=== PATIENT | female | born 1970 | race Caucasian/White ===

== ENCOUNTER 2017-01-03 13:49 | Emergency (ER) | payer MEDICAID ==
[~2017-01-03] VITALS: Ht 170.2 cm; Wt 59.5 kg
[~2017-01-03 13:49] MED LIST: HYDR-3498 PO; IBUP-1542 PO; ZOF8 PO
[2017-01-03 13:56] VITALS: Ht 170.2 cm; Wt 59.5 kg
[2017-01-03] MEDS ORDERED: ONDANSETRON (ODT) 4 MG TAB ODT STA (14:23)
[2017-01-03] MEDS ORDERED: HYDROCODONE/APAP (5/325) TAB PO ONE (14:30)
--- NOTE | 2017-01-03 14:55 | RADRPT ---
PROCEDURE: CT brain without contrast CLINICAL INDICATION: Headache, numbness TECHNIQUE: CT of the brain without contrast was performed on a multidetector CT scanner, with multi planar reformats. One or more of the following dose reduction techniques were used: Automated expos ure control, adjustment in mA and / or kV according to patient size, use of iterative reconstructive technique. CTDIvol = 45 mGy; DLP = 630 mGy-cm. COMPARISON: 05/10/2015 FINDINGS: No acute intracranial hemorrhage is identified. No extra-axial fluid collection is seen. There is no mass effect. No midline shift is identified. Ventricles and sulci are within normal limits for size and configuration. The density of the brain is within normal limits. Lynn-white differentiation is preserved. Osseous structures are unremarkable. Mastoid air cells and imaged paranasal sinuses grossly clear. IMPRESSION: Unremarkable noncontrast CT of the brain. RPTAT: VV .Toby Simon MD, MD Date Time Electronically viewed and signed by .Toby Simon MD, on 01/03/2017 14:54 .O/
[2017-01-03] MEDS ORDERED: CYCL-319 PO (15:05)
[2017-01-03] MEDS ORDERED: FIORICET PO (15:05)
--- NOTE | 2017-01-03 15:10 | ERD ---
ER Documentation Chief Complaint Date/Time DATE: 01/03/17 TIME: 15:08 Chief Complaint rojas, rt side numbness x3 days, ambulate w/steady gait, no deficit HPI This 38-year-old female complains of right-sided headache with some numbness on the right side of her head, neck and right shoulder area. She denies any history of trauma or inciting events. She denies visual changes, vomiting, weakness, bowel or bladder incontinence. She denies any previous neck problems. She has a history of headaches but usually on the left side none regularly. ROS All systems reviewed and are negative except as per history of present illness. Medications Home Meds Active Scripts Cyclobenzaprine Hcl* (Cyclobenzaprine Hcl*) 10 Mg Tablet, 10 MG PO TID, #15 TAB Prov:ANU ALMEIDA MD 01/03/17 Acetamin/Butalbital/Caffeine* (Fioricet*) [id number] Tab, 1 TAB PO Q6H Y for PAIN, #20 TAB Prov:ANU ALMEIDA MD 01/03/17 Ibuprofen* (Motrin*) 600 Mg Tab, 600 MG PO Q6, #20 TAB Prov:ANU ALMEIDA MD 05/10/15 Hydrocodone Bit-Acetaminophen* ([place]*) 5-325 Mg Tab, 1 TAB PO Q6 Y for PAIN, # 12 TAB Prov:ANU ALMEIDA MD 05/10/15 Ondansetron Hcl* (Zofran* ODT) 8 mg -ODT Tab.disper, 8 MG PO Q6 Y for NAUSEA AND /OR VOMITING, #8 TAB Prov:ANU ALMEIDA MD 05/10/15 Allergies Allergies: Coded Allergies: naproxen (Verified Allergy, Mild, 01/03/17) PMhx/Soc History of Surgery: No Anesthesia Reaction: No Hx Neurological Disorder: No Hx Respiratory Disorders: No Hx Cardiac Disorders: No Hx Psychiatric Problems: No Hx Miscellaneous Medical Probl: No Hx Alcohol Use: No Hx Substance Use: No Hx Tobacco Use: No Physical Exam Vitals Vital Signs Date Time Temp Pulse Resp B/P Pulse Ox O2 Delivery O2 Flow Rate FiO2 01/03/17 13:56 98.1 83 20 138/80 99 Physical Exam Const: [] Alert, [id number] per Head: Atraumatic Eyes: Normal Conjunctiva ENT: Normal External Ears, Nose and Mouth. Neck: Full range of motion..~ No meningismus.. Mild tenderness at the base of the right occipital Resp: Clear to auscultation bilaterally Cardio: Regular rate and rhythm, no murmurs Abd: Soft, non tender, non distended. Normal bowel sounds Skin: No petechiae or rashes Back: No midline or flank tenderness Ext: No cyanosis, or edema Neur: Awake and alert. Normal gait. No appreciable focal neurologic deficits Psych: Normal Mood and Affect Results 24 hrs Current Medications Medications (Trade) Dose Ordered Sig/Nas Route PRN Reason Start Time Stop Time Status Last Admin Dose Admin Acetaminophen/ Hydrocodone Bitart ([place] (5/325)) 1 tab ONCE ONCE PO 01/03/17 14:30 01/03/17 14:31 DC 01/03/17 14:38 Ondansetron HCl (Zofran Odt) 8 mg ONCE STAT ODT 01/03/17 14:23 01/03/17 14:25 DC 01/03/17 14:38 Procedures/MDM Patient was given [place] 5 mg by mouth. Patient had a CT scan of the brain given the uncertain cause of headache which was read as normal by the radiologist. Patient presents with acute right-sided headache with additional symptoms suggestive of radicular pain at C1-C2 area. She has no signs or symptoms of meningitis, bleeding, fracture, neurologic deficit. She will treated with Fiorinal and Flexeril at home and primary care follow-up. She should return for chest pain, shortness breath, fevers, weakness, worsening neurologic complaints, new worsening symptoms with primary care doctor . Departure Diagnosis: Primary Impression: Headache Headache type: unspecified Headache chronicity pattern: acute headache Intractability: not intractable Qualified Code: R51 - Acute nonintractable headache, unspecified headache type Condition: Stable Patient Instructions: Headache, Unspecified, Neck Pain, No Trauma Additional Instructions: CT NORMAL . PROBABLAMENTE DE NERVIO DE NUCHA. Cheque otro vez con ace doctor primario en el proximo babin or regresa para mas o nueva simptomas. ANU ALMEIDA MD Jan 03, 2017 15:10
== END 2017-01-03 17:05 | disposition home or self-care (01) ==
LOC: FTE 13:49
DX: R51 Headache (principal)
CPT/HCPCS: 70450; Z7502; Z7610

== ENCOUNTER 2017-06-10 17:12 | Emergency (ER) | END 2017-06-10 19:51 | disposition home or self-care (01) | DX: R10.13 Epigastric pain (principal); R11.0 Nausea | CPT/HCPCS: 36415; 76705; 80053; 81001; 83690; 85025; 96374; 96375; J2270; J2405; J7030; Z7502; Z7610 ==

== ENCOUNTER 2017-09-20 10:19 | Emergency (ER) | END 2017-09-20 13:44 | disposition home or self-care (01) ==